=== PATIENT | male | born 1970 | race Caucasian/White ===

== ENCOUNTER 2020-03-29 07:34 | Emergency (ER) | payer OTHER, SELFPAY ==
--- NOTE | 2020-03-29 | ECG_ITS ---
Test Reason : CHEST PAIN Blood Pressure : / mmHG Vent. Rate : 060 BPM Atrial Rate : 060 BPM P-R Int : 164 ms QRS Dur : 114 ms QT Int : 420 ms P-R-T Axes : 010 -12 040 degrees QTc Int : 420 ms Normal sinus rhythm Suble inferior ST elevations with q waves and reciprocal lateral changes. Abnormal ECG No previous ECGs available Referred By: Vamsi Quevedo Electronically Signed By:Jarrod Fuller
--- NOTE | 2020-03-29 07:57 | ED.CHESTPAIN ---
HPI - Chest Pain General Chief Complaint: Chest Pain Stated Complaint: chest pain Time Seen by Provider: 03/29/20 07:57 Source: patient Mode of arrival: ambulatory Limitations: no limitations History of Present Illness HPI narrative: Patient has history of hypertension high cholesterol nonsmoker and alcoholic with no known coronary artery disease woke up from sleep at 02:30 went to bathroom and when he came back noticed mid chest and epigastric area pain nauseated, had diaphoresis too no radiation of pain patient feels heavy in mid chest pain is constant, never had similar pain in the past no history of pancreatitis. Father had OR at age of 45 patient vomited at 06:00 o'clock and just prior to arrival patient said that patient has been having this mid chest pain off and on for last 1 week tried Tums without any relief and last night was the worst pain MD complaint: chest pain Onset (ago): hour(s) Timing of current episode: constant Prior episodes: No Onset: during rest Pain location: substernal and left chest Pain radiation: none Severity: moderate Quality: heaviness Relieving factors: nothing Exacerbating factors: supine Associated symptoms: nausea and vomiting Treatment prior to arrival: none Risk Factors Coronary artery disease risk factors: smoking history, hyperlipidemia, hypertension and family history of CAD before age 50 Related Data Allergies Allergy/AdvReac Type Severity Reaction Status Date / Time No Known Allergies Allergy Verified 03/29/20 08:11 Review of Systems Review of Systems: Constitutional : No Weight loss, No Fever, No Chills ENT/Mouth : No sore throat, No Rhinorrhea Eyes: No Eye Pain, No Swelling Cardiovascular : +Chest Pain, no palpitations Respiratory : No Cough, No Sputum, no shortness of breath Gastrointestinal : no Nausea, No Vomiting, No Diarrhea, No abdominal Pain, no black stools Genitourinary : No Dysuria, No Urinary Frequency Musculoskeletal : No joint pain, No Myalgias, No Joint Swelling Skin : No Skin Lesions, No rash Neuro : No Weakness, No Numbness, No Dizziness, No Headache Psych : No Anxiety/Panic, No Depression Heme/Lymph: No Bruising, No Lymphadenopathy Endocrine : No Polyuria, No Polydipsia All other systems reviewed and are negative PMFSH Past Medical History Medical History High cholesterol Hypertension Social History Social History Alcohol intake: current Alcohol intake frequency: 0-2 drinks per day Alcohol type: beer Smoking Status: Never smoker Physical Exam Vital Signs: Vital Signs: Last Vital Signs Temp 97.6 F 03/29/20 08:07 Pulse 68 03/29/20 10:19 Resp 15 03/29/20 10:19 BP 133/89 03/29/20 10:19 Pulse Ox 100 03/29/20 10:19 Body Mass Index 42.5 Appearance: Alert. Oriented X3. No acute distress. Eyes: Pupils equal, round and reactive to light. ENT: Pharynx normal. Neck: Normal inspection. Neck supple. CVS: Normal heart rate and rhythm. Pulses normal. Respiratory: No respiratory distress. Breath sounds normal. Abdomen: Soft mild epigastric tenderness no rebound tenderness or guarding. Bowel sounds are present, no mass palpable, no CVA tenderness Skin: Skin warm and dry. Normal skin color. Normal skin turgor. Extremities: No lower extremity edema. Neuro: Oriented X 3. No motor deficit. No sensory deficit. Course Course Course Narrative: 09:[address] Fuller psychology instructor agreed for heparin and nitroglycerin drip will come and evaluate the patient Reevaluation(s) Reevaluation #1: Seen with Dr. Fuller spoke to cardiac catheterization lab at [facility] Dr. Wheat accepted the patient for cardiac catheterization patient blood pressure 141/92 pulse rate 62 respiratory rate 15 saturating 100% room air on nitroglycerin drip heparin drip received Lipitor 80 mg and is getting 180 mg of Brilinta feels pain is getting better but still there Time: 10:09 MDM - Chest Pain MDM Narrative Medical decision making narrative: Patient with midsternal chest pain clinically seems like to be cardiac origin initial EKG showed Q-wave in lead 3 and lead AVF without any ST elevation, high sensitive troponin is elevated to 2174 patient is still complaining of mild chest pain repeat EKG did not show any acute changes will start patient on heparin and nitroglycerin drip calling psychology instructor to review and possible transfer to [facility] for cardiac catheterization Differential Diagnosis Differential diagnosis: Likely stable angina, atypical chest pain, chest pain and biliary colic Lab Data Result diagrams: 03/29/20 08:37 03/29/20 08:38 Labs: Lab Results 03/29/20 03/29/20 03/29/20 Range/Units 08:37 08:38 08:38 WBC 9.9 (4.8-10.8) X10*3/uL RBC 4.99 (4.60-5.80) X10*6/uL Hgb 16.3 (14.0-18.0) g/dl Hct 47.8 (42-52) % MCV 95.8 (80-98) fL MCH 32.7 (27.0-33.0) pg MCHC 34.1 (31.0-36.0) g/dl RDW 12.8 (11.0-16.0) % Plt Count 253 (160-400) X10*3/uL MPV 9.7 (9.4-12.4) fL Immature Gran % (Auto) 0.9 H (0.0-0.4) % Neut % (Auto) 79.2 H (45-73) % Lymph % (Auto) 12.1 L (20-40) % [place] % (Auto) 7.4 (2-11) % Eos % (Auto) 0.1 (0-4) % Baso % (Auto) 0.3 (0-2) % Lymph # (Auto) 1.2 (1.2-4.9) X10*3/uL [place] # (Auto) 0.7 (0.1-1.2) X10*3/uL Eos # (Auto) 0.0 (0.0-0.4) X10*3/uL Baso # (Auto) 0.0 (0.0-0.2) X10*3/uL Abs Immat Gran (auto) 0.09 H (0.00-0.03) X10*3/uL Absolute Neuts (auto) 7.8 (2.0-8.3) X10*3/uL Absolute Nucleated RBC 0.000 (0.0-0.012) X10*3/uL Nucleated RBC % (auto) 0.0 (0.0-0.2) /100WBC PT 11.9 (10.8-13.0) SEC INR 1.0 (0.9-1.1) APTT 36.5 (24.1-38.0) SEC D-Dimer < 200 NG/ML Sodium 135 (135-145) mmol/L Potassium 4.3 (3.3-5.1) mmol/l Chloride 100 (96-108) mmol/L Carbon Dioxide 28 (22-29) mmol/L Anion Gap 11 L (12-20) BUN 15 (9-16) mg/dL Creatinine 0.76 (0.5-1.4) mg/dL Estim Creat Clear Calc 168.1 Estimated GFR > 60 Random Glucose 200 H (60-115) mg/dL Calcium 9.0 (8.4-10.2) mg/dL Total Bilirubin 0.5 (0.0-1.0) mg/dL Direct Bilirubin 0.2 (0.0-0.5) mg/dL AST 25 (5-37) U/L ALT 25 (0-40) U/L Alkaline Phosphatase 66 (39-117) U/L Troponin I High Sens (<3.5-35.0) ng/L Total Protein 7.2 (6.5-8.0) g/dL Albumin 4.3 (3.5-5.0) g/dL Lipase 14 (8-78) U/L COVID-19 (CHIDI) COVID-19 Clin Com 03/29/20 03/29/20 Range/Units 08:38 09:30 WBC (4.8-10.8) X10*3/uL RBC (4.60-5.80) X10*6/uL Hgb (14.0-18.0) g/dl Hct (42-52) % MCV (80-98) fL MCH (27.0-33.0) pg MCHC (31.0-36.0) g/dl RDW (11.0-16.0) % Plt Count (160-400) X10*3/uL MPV (9.4-12.4) fL Immature Gran % (Auto) (0.0-0.4) % Neut % (Auto) (45-73) % Lymph % (Auto) (20-40) % [place] % (Auto) (2-11) % Eos % (Auto) (0-4) % Baso % (Auto) (0-2) % Lymph # (Auto) (1.2-4.9) X10*3/uL [place] # (Auto) (0.1-1.2) X10*3/uL Eos # (Auto) (0.0-0.4) X10*3/uL Baso # (Auto) (0.0-0.2) X10*3/uL Abs Immat Gran (auto) (0.00-0.03) X10*3/uL Absolute Neuts (auto) (2.0-8.3) X10*3/uL Absolute Nucleated RBC (0.0-0.012) X10*3/uL Nucleated RBC % (auto) (0.0-0.2) /100WBC PT (10.8-13.0) SEC INR (0.9-1.1) APTT (24.1-38.0) SEC D-Dimer NG/ML Sodium (135-145) mmol/L Potassium (3.3-5.1) mmol/l Chloride (96-108) mmol/L Carbon Dioxide (22-29) mmol/L Anion Gap (12-20) BUN (9-16) mg/dL Creatinine (0.5-1.4) mg/dL Estim Creat Clear Calc Estimated GFR Random Glucose (60-115) mg/dL Calcium (8.4-10.2) mg/dL Total Bilirubin (0.0-1.0) mg/dL Direct Bilirubin (0.0-0.5) mg/dL AST (5-37) U/L ALT (0-40) U/L Alkaline Phosphatase (39-117) U/L Troponin I High Sens 2174.1 H (<3.5-35.0) ng/L Total Protein (6.5-8.0) g/dL Albumin (3.5-5.0) g/dL Lipase (8-78) U/L COVID-19 (CHIDI) Cancelled COVID-19 Clin Com Cancelled ECG Data ECG #1: Attestation: I personally reviewed and interpreted this ECG as follows: Interpretation: Normal sinus rhythm heart rate 60 beats per minute normal intervals normal axis Q-wave in lead 3 and AVF, no acute ST T wave changes impression no acute ischemia Critical Care Time Critical Care Time Critical Care Time: Yes Total Critical Care Time: 45 Attestation: I spent 45 minutes of critical care, with interventions, assessments, speaking to patient, consultants, and family. Discharge Plan Discharge Clinical Impression: Non-ST elevated myocardial infarction (non-STEMI) Patient Disposition: [facility] Additional Instructions: To cardiac catheterization lab [facility] under Dr. Wheat Interventions: Acute Care Transfer Worksheet (ED) Last Done: 03/29/20 10:33 Discharge Date/Time: 03/29/20 10:40
[2020-03-29 08:07] VITALS: BP 154/98; PULSE 65; RESP 16; TEMP 36.4; O2SAT 99; BMI 42.5
--- NOTE | 2020-03-29 08:11 | XR_ITS ---
EXAMINATION: XR CHEST CLINICAL INFORMATION: Chest pain. COMPARISON: None TECHNIQUE: Frontal view of the chest was obtained. FINDINGS: No significant abnormality is noted involving the heart, lungs, mediastinum, bony thorax or soft tissues. XR/XR chest 1V IMPRESSION: Unremarkable chest examination.
[2020-03-29 08:42] LABS: MANUAL DIFF FLAG NO
[2020-03-29 08:43] LABS: Basophils Percent Auto 0.3 % (0-2); Eosinophils Percent Auto 0.1 % (0-4); Hematocrit 47.8 % (42-52); Hemoglobin 16.3 g/dl (14.0-18.0); Imm Gran Abs Auto 0.09 X10*3/uL (0.00-0.03); Imm Gran Pct Auto 0.9 % (0.0-0.4); Lymphocytes Absolute Auto 1.2 X10*3/uL (1.2-4.9); Lymphocytes Percent Auto 12.1 % (20-40); Mean Corpuscular HGB Conc 34.1 g/dl (31.0-36.0); Mean Corpuscular Hemoglobin 32.7 pg (27.0-33.0); Mean Corpuscular Volume 95.8 fL (80-98); Mean Platelet Volume 9.7 fL (9.4-12.4); Monocytes Absolute Auto 0.7 X10*3/uL (0.1-1.2); Monocytes Percent Auto 7.4 % (2-11); Neutrophils Absolute Auto 7.8 X10*3/uL (2.0-8.3); Neutrophils Percent Auto 79.2 % (45-73); Platelet Count 253 X10*3/uL (160-400); Red Blood Count 4.99 X10*6/uL (4.60-5.80); Red Cell Distribution Width 12.8 % (11.0-16.0); White Blood Count 9.9 X10*3/uL (4.8-10.8)
[2020-03-29 08:48] LABS: Prothrombin Time 11.9 SEC (10.8-13.0)
[2020-03-29] MEDS: 0.9 % Sodium Chloride 1,000 ML 999 ML IVCONT (08:48)
[2020-03-29] MEDS: Aspirin 81 MG TAB.CHEW 162 MG PO (08:48)
[2020-03-29] MEDS: Famotidine/PF 20 MG/2 ML VIAL IVPUSH (08:49)
[2020-03-29] MEDS: ondansetron HCL 4 MG/2 ML VIAL IVPUSH (08:49)
[2020-03-29 08:51] LABS: Partial Thromboplastin Time 36.5 SEC (24.1-38.0)
[2020-03-29 08:55] VITALS: PULSE 61
[2020-03-29] MEDS: Magnesium Hydrox/Alum Hydrox 30 ML ORAL.SUSP PO (09:02)
[2020-03-29 09:09] LABS: Alanine Aminotransferase 25 U/L (0-40); Albumin Level 4.3 g/dL (3.5-5.0); Alkaline Phosphatase 66 U/L (39-117); Anion Gap 11 (12-20); Aspartate Amino Transferase 25 U/L (5-37); Bilirubin Direct 0.2 mg/dL (0.0-0.5); Bilirubin Total 0.5 mg/dL (0.0-1.0); Blood Urea Nitrogen 15 mg/dL (9-16); Carbon Dioxide 28 mmol/L (22-29); Chloride 100 mmol/L (96-108); Creatinine Clr Calc Pharmacy 168.1; Estimated Glomerular Filt Rate > 60; Glucose Random 200 mg/dL (60-115); Lipase 14 U/L (8-78); Potassium 4.3 mmol/l (3.3-5.1); Sodium 135 mmol/L (135-145); Total Protein 7.2 g/dL (6.5-8.0)
[2020-03-29 09:22] LABS: Troponin-I High Sensitivity 2174.1 ng/L (<3.5-35.0)
[2020-03-29 09:34] VITALS: BP 141/92; PULSE 62; RESP 15; O2SAT 100
[2020-03-29] MEDS: Heparin Sodium,Porcine 5,000 UNIT/ML VIAL 5000 UNIT IVPUSH (09:36)
[2020-03-29] MEDS: Heparin Sodium,Porcine/1/2NS 25,000 UNIT/250 ML IV.SOLN 10 UNIT IVCONT (09:38)
[2020-03-29 09:42] LABS: D Dimer < 200 NG/ML
[2020-03-29] MEDS: Nitroglycerin/D5W 100 MG/250 ML INFUS..BTL IVCONT (09:47)
--- NOTE | 2020-03-29 09:56 | PC.NURSE ---
turn down attendant at bedside, pt aware of plan of care.
[2020-03-29] MEDS: Atorvastatin Calcium 80 MG TABLET PO (09:57)
--- NOTE | 2020-03-29 09:58 | PC.NURSE ---
nitro drip increased to 30mcg/min per dr. bear who is at pt's bedside vs 150/88-81
[2020-03-29] MEDS: Ticagrelor 90 MG TABLET 180 MG PO (10:16)
[2020-03-29 10:19] VITALS: BP 133/89; PULSE 68; RESP 15; O2SAT 100
--- NOTE | 2020-03-29 10:21 | PC.NURSE ---
nurse to nurse given to lorri (rn[place] [facility] [place] of plan of care for transfer via ambulance. pt's and son in waiting room were also updated by dr. oreilly.
--- NOTE | 2020-03-29 10:23 | PC.NURSE ---
ems is here but they are not certified to transport pt so action was called by the ems for another transport.
--- NOTE | 2020-03-29 10:23 | PM.CNCAR ---
History of Present Illness History of Present Illness Date of Service: 03/29/20 Requesting physician: Vamsi Quevedo Chief complaint: chest pain Narrative: 49-year-old gentleman with HTN and alcohol use presenting with off and on CP ongoing x 1 week and persistent chest pain since 2 am. ECG is showing inferior Q waves with subtle elevations and reciprocal changes. He has been on nitroglycerin gtt with ongoing pain 4-5/10. No previous cardiac issues. No bleeding concerns in the past. He has been loaded with Brilinta in the ER and started on heparin gtt. Review of Systems Review of Systems: CP Yes all other systems are reviewed and are negative PMFSH Past Medical History Medical History High cholesterol Hypertension Social History Social History Alcohol intake: current Alcohol intake frequency: 0-2 drinks per day Alcohol type: beer Smoking Status: Never smoker Use of substances other than those prescribed or required for medical reasons: No Advance Directives: No Advance Directives Information Provided: Yes Meds Allergies Allergy/AdvReac Type Severity Reaction Status Date / Time No Known Allergies Allergy Verified 03/29/20 08:11 Physical Exam Vital Signs: Vital Signs: Last Vital Signs Temp 97.6 F 03/29/20 08:07 Pulse 62 03/29/20 09:34 Resp 15 03/29/20 09:34 BP 141/92 H 03/29/20 09:34 Pulse Ox 100 03/29/20 09:34 Body Mass Index 42.5 GENERAL APPEARANCE: in no acute distress, well developed, well nourished. HEENT: unremarkable. HEAD: normocephalic, atraumatic. NECK/THYROID: no carotid bruit, no jugular venous distention. SKIN: no suspicious lesions, warm and dry. HEART: no murmurs, regular rate and rhythm, S1, S2 normal. LUNGS: clear to auscultation bilaterally. ABDOMEN: normal, bowel sounds present, soft, nontender, nondistended. EXTREMITIES: no clubbing, cyanosis, or edema. PERIPHERAL PULSES: equal. NEUROLOGIC: nonfocal, alert and oriented. PSYCH: mood/affect full range. Results Labs and Meds Result diagrams: 03/29/20 08:37 03/29/20 08:38 Lab results: Laboratory Results - last 24 hr 03/29/20 03/29/20 03/29/20 08:37 08:38 08:38 WBC 9.9 RBC 4.99 Hgb 16.3 Hct 47.8 MCV 95.8 MCH 32.7 MCHC 34.1 RDW 12.8 Plt Count 253 MPV 9.7 Immature Gran % (Auto) 0.9 H Neut % (Auto) 79.2 H Lymph % (Auto) 12.1 L [place] % (Auto) 7.4 Eos % (Auto) 0.1 Baso % (Auto) 0.3 Lymph # (Auto) 1.2 [place] # (Auto) 0.7 Eos # (Auto) 0.0 Baso # (Auto) 0.0 Abs Immat Gran (auto) 0.09 H Absolute Neuts (auto) 7.8 Absolute Nucleated RBC 0.000 Nucleated RBC % (auto) 0.0 PT 11.9 INR 1.0 APTT 36.5 D-Dimer < 200 Sodium 135 Potassium 4.3 Chloride 100 Carbon Dioxide 28 Anion Gap 11 L BUN 15 Creatinine 0.76 Estim Creat Clear Calc 168.1 Estimated GFR > 60 Random Glucose 200 H Calcium 9.0 Total Bilirubin 0.5 Direct Bilirubin 0.2 AST 25 ALT 25 Alkaline Phosphatase 66 Troponin I High Sens Total Protein 7.2 Albumin 4.3 Lipase 14 COVID-19 (CHIDI) COVID-19 Clin Com 03/29/20 03/29/20 08:38 09:30 WBC RBC Hgb Hct MCV MCH MCHC RDW Plt Count MPV Immature Gran % (Auto) Neut % (Auto) Lymph % (Auto) [place] % (Auto) Eos % (Auto) Baso % (Auto) Lymph # (Auto) [place] # (Auto) Eos # (Auto) Baso # (Auto) Abs Immat Gran (auto) Absolute Neuts (auto) Absolute Nucleated RBC Nucleated RBC % (auto) PT INR APTT D-Dimer Sodium Potassium Chloride Carbon Dioxide Anion Gap BUN Creatinine Estim Creat Clear Calc Estimated GFR Random Glucose Calcium Total Bilirubin Direct Bilirubin AST ALT Alkaline Phosphatase Troponin I High Sens 2174.1 H Total Protein Albumin Lipase COVID-19 (CHIDI) Cancelled COVID-19 Clin Com Cancelled Imaging Radiologist's impression: Impressions Chest X-Ray 03/29/20 08:11 IMPRESSION: Unremarkable chest examination. Assessment and Plan (1) Non-ST elevated myocardial infarction (non-STEMI): Status: Acute Pleasant 49-year-old gentleman here for ongoing chest discomfort since 2 AM. He has been having structure chest pain for the last week. ECG showing inferior Q-waves with subtle ST elevation with reciprocal changes. His troponin is 2000. He has ongoing chest discomfort at this stage despite nitroglycerin. I think he needs to cardiac catheterization lab now. He is being loaded with Brilinta 180 mg and is already on heparin drip. We will transfer him straight to cardiac catheterization lab. I had a discussion with Dr. Javy Wheat at [facility] who will take him for cardiac catheterization. Further recommendation based on results of cardiac catheterization. Thank you for allowing me to participate in the care of your patient. Please feel free to contact me if you have any questions.
--- NOTE | 2020-03-29 10:24 | PC.NURSE ---
10:08AM [facility] CALLED FOR STAT CALL FOR ALS TRANSPORT TO [facility] COMPLEX CASE MANAGER DR OXANA HORTA ACCEPTING @ [facility]
--- NOTE | 2020-03-29 10:28 | PC.NURSE ---
nurse to nurse given to ems
[2020-03-29 10:53] LABS: COVID-19 Test Negative (Negative)
--- NOTE | 2020-03-30 | ECG_ITS ---
Test Reason : CHEST PAIN Blood Pressure : / mmHG Vent. Rate : 065 BPM Atrial Rate : 065 BPM P-R Int : 156 ms QRS Dur : 108 ms QT Int : 430 ms P-R-T Axes : 024 -05 050 degrees QTc Int : 447 ms Sinus rhythm with Fusion complexes Inferior infarct (cited on or before 29-MAR-2020) Abnormal ECG When compared with ECG of 29-MAR-2020 07:41, Fusion complexes are now Present Referred By: Vamsi Quevedo Electronically Signed By:Jarrod Fuller
== END 2020-03-29 10:40 | disposition short-term general hospital (02) ==
PROVIDERS: Emergency Provider Internal Medicine; PCP Internal Medicine
DX: I21.4 Non-ST elevation (NSTEMI) myocardial infarction (principal); Z20.822 Contact with and (suspected) exposure to COVID-19; I10 Essential (primary) hypertension; E78.5 Hyperlipidemia, unspecified
CPT/HCPCS: 36415; 71045; 80048; 80076; 83690; 84484; 85025; 85379; 85610; 85730; 87635; 93005; 96361; 96365; 96375; 99285; 99291; J2405

== ENCOUNTER → 2020-04-12 13:09 | Outpatient (BNVA) | payer OTHER, SELFPAY | PROVIDERS: PCP Internal Medicine; Visit Provider Internal Medicine Cardiovascular Disease ==

== ENCOUNTER → 2020-05-03 09:18 | Outpatient (BNVA) | payer OTHER, SELFPAY | PROVIDERS: PCP Internal Medicine; Visit Provider Internal Medicine Cardiovascular Disease | DX: I48.0 Paroxysmal atrial fibrillation (principal); I21.4 Non-ST elevation (NSTEMI) myocardial infarction; I25.5 Ischemic cardiomyopathy | CPT/HCPCS: 93005 ==

== ENCOUNTER → 2020-06-14 09:37 | Outpatient (BNVA) | payer OTHER, SELFPAY | PROVIDERS: PCP Internal Medicine; Visit Provider Internal Medicine Cardiovascular Disease ==

== ENCOUNTER → 2020-07-29 07:22 | Outpatient (REF) | payer OTHER, SELFPAY ==
--- NOTE | 2020-07-29 07:25 | CA_ITS ---
Transthoracic Echocardiogram Patient (Last, First, Middle): Sagar Sierra, Gender: Male Date of : 1970 Age: 50 Procedure Date: 07/29/2020 Procedure Type: Transthoracic Echocardiogram Location: OP Height: 185.42 cm Weight: 124.74 kg BSA: 2.46 m2 Heart Rate: bpm BP: 128 / 82 mmHg Auto Garage Mechanic: Gary MD: Jarrod Fuller MD Symptoms: I25.5 - Ischemic cardiomyopathy Study Quality: Good ECG Rhythm: Sinus Conclusions: - Due to poor endocardial definition, wall motion assessment suboptimal. Basal inferior wall appears hypokinetic. Overall LVEF > 50%. Findings Left Ventricle Normal left ventricular cavity size. Due to poor endocardial definition, wall motion assessment suboptimal. Basal inferior wall appears hypokinetic. Overall LVEF > 50%. Prior Study Comparison No prior study available for comparison. Measurements 2D Linear Measurements RVIDd: 3.84 RVIDd Index: 1.56 IVSd: 0.91 0.6-0.9/0.6-1.0 cm LVIDd: 6.09 3.9-5.3/4.2-5.9 cm LVIDd Index: 2.48 2.4-3.2/2.2-3.1 cm/m2 LVIDs: 3.60 2.0-3.6 cm LVPWd: 1.02 0.7-1.1 cm LV Mass: 300.78 67-162/88-224 g LV Mass Index: 122.27 43-95/49-115 g/m2 2D Systolic Function EF 4C: 51.80 >55% EF 2C: 45.60 >55% EF BiP: 49.80 >55% Mitral Valve MV Pk E: 0.74 MV PK A: 0.74 MV Decel Time: 240.00 E/A: 1.00 E'Lateral: 8.49 E'Medial: 8.05 E/E' Med: 9.20 E/E' Lat: 8.70 Diastolic Function MV Pk E: 0.74 MV Pk A: 0.74 E/A: 1.00 E'Medial: 8.05 E/E' Med: 9.20 E' Laterial: 8.49 E/E' Lat: 8.70 Updated in Other Vendor System with Status of Final Tristan Lewis MD electronically signed on 07/30/2020 3:41:53 PM with status of Final
== END ==
LOC: HO.CARD 07:22
PROVIDERS: Visit Provider Internal Medicine Cardiovascular Disease
DX: I25.5 Ischemic cardiomyopathy (principal)
CPT/HCPCS: 93308

== ENCOUNTER → 2020-08-05 14:17 | Outpatient (BNVA) | payer OTHER, SELFPAY | PROVIDERS: PCP Internal Medicine; Visit Provider Internal Medicine Cardiovascular Disease ==

== ENCOUNTER → 2021-02-21 14:41 | Outpatient (BNVA) | payer OTHER, SELFPAY | PROVIDERS: Visit Provider Internal Medicine Cardiovascular Disease | DX: I48.0 Paroxysmal atrial fibrillation (principal); M79.606 Pain in leg, unspecified; I20.8 Other forms of angina pectoris | CPT/HCPCS: 93005 ==

== ENCOUNTER 2021-03-11 08:48 | Outpatient (REF) | payer OTHER, SELFPAY ==
--- NOTE | ~2021-03-11 | US_ITS ---
EXAMINATION: Noninvasive assessment of the arteries of both lower extremities to include a PVR exam limited (1-2 levels) and SOPHIA, bilateral. ? Brian aMynard M.D. CLINICAL INFORMATION: Pain in leg COMPARISON: None TECHNIQUE: The ankle/brachial indices of the distal posterior tibial and the dorsalis pedis arteries were obtained of the lower extremity arterial system bilaterally; along with pressures and pulse volume recordings at the ankle. ? FINDINGS AT REST:? RIGHT LE. THE RIGHT ANKLE-BRACHIAL INDEX IS: 1.18 (higher of the DP/PT) >0.97-1.25 = normal - no significant arterial disease 0.75-0.96 = mild peripheral arterial disease 0.50-0.74 = moderate peripheral arterial disease <0.50 = severe peripheral arterial disease <0.30 = critical arterial disease 2. SEGMENTAL PRESSURES: Ankle: PT 125 DP 148 3. PVR WAVEFORMS: Ankle: Normal LEFT LE. THE LEFT ANKLE-BRACHIAL INDEX IS: 1.16 (higher of the DP/PT) >0.97-1.25 = normal - no significant arterial disease 0.75-0.96 = mild peripheral arterial disease 0.50-0.74 = moderate peripheral arterial disease <0.50 = severe peripheral arterial disease <0.30 = critical arterial disease 2. SEGMENTAL PRESSURES: Ankle: PT 145 DP 141 3. PVR WAVEFORMS: Ankle: Normal ? US/US SOPHIA complete IMPRESSION: Normal PVR waveforms and ABIs.
== END 2021-03-11 08:49 | disposition home or self-care (01) ==
LOC: HO.US 08:48
PROVIDERS: PCP Internal Medicine; Visit Provider Internal Medicine Cardiovascular Disease
DX: M79.606 Pain in leg, unspecified (principal)
CPT/HCPCS: 93923

== ENCOUNTER → 2021-06-15 13:09 | Outpatient (BNVA) | payer OTHER, SELFPAY | PROVIDERS: PCP Internal Medicine; Visit Provider Internal Medicine Cardiovascular Disease | DX: Z13.89 Encounter for screening for other disorder (principal) ==

== ENCOUNTER → 2021-12-28 15:33 | Outpatient (BNVA) | payer OTHER, SELFPAY | PROVIDERS: PCP Internal Medicine; Visit Provider Internal Medicine Cardiovascular Disease | DX: I20.8 Other forms of angina pectoris (principal); I48.0 Paroxysmal atrial fibrillation | CPT/HCPCS: 93005 ==

== ENCOUNTER → 2022-02-15 08:26 | Outpatient (REF) | payer OTHER, SELFPAY ==
--- NOTE | 2022-02-15 08:30 | HM_ITS ---
* Total monitoring time 4 days. * Underlying rhythm is sinus. Average ventricular rate 79/Min. Range 47 to 109/Min. * Occasional supraventricular ectopy with a burden of 1.7%. * Rare ventricular ectopy with a burden of 0.4%. * No significant pauses or AV blocks. * No diary submitted. MTDD
--- NOTE | 2022-02-15 08:30 | CA_ITS ---
Acquisition Time: 2022-02-15 10:26:26 Total Exercise Time: 00:06:51 Test Indications: Syncope, Shortness of breath Medications: Protocol: CRISTÓBAL Max HR: 134 BPM 80% of Pred: 167 BPM Max BP: 168/086 mmHG Max Work Load: 8.2 METS Exercise stress test with exercise 6 min 51 sec of Cristóbal protocol, achieving 75% MPHR, 8.2 METs, with mild sob and left foot pain with need to stop exercise, No chest discomfort or lightheadedness, with isolated PVCs, ventricular cuplets and ventricular bigeminy through much of stage 2 and 3, with normotensive response to exercise, without EKG changes meeting criteria for ischemia due to suboptimal heart rate. In recovery PVCs lessened and were just occassioinal. Test reviewed with Dr Lewis Referred By: Jarrod Fuller Overread By: MIGUEL RAMIREZ
--- NOTE | 2022-02-15 08:30 | CA_ITS ---
Transthoracic Echocardiogram Patient (Last, First, Middle): Sagar Sierra, Gender: Male Date of : 1970 Age: 51 Procedure Date: 02/15/2022 Procedure Type: Transthoracic Echocardiogram Location: OP Height: 185.42 cm Weight: 124.74 kg BSA: 2.46 m2 Heart Rate: 66 bpm BP: 118 / 76 mmHg Gm: SB Referring MD: Jarrod Fuller MD Symptoms: R55 - Syncope and collapse Study Quality: Adequate w contrast ECG Rhythm: Sinus Conclusions: - The left ventricular systolic function is low normal. The calculated ejection fraction is 53% by biplane method. Findings Procedure Information Contrast agent, definity, is being given per protocol without apparent complications. Left Ventricle Normal left ventricular cavity size. The left ventricular systolic function is low normal. The calculated ejection fraction is 53% by biplane method. There is no evidence of regional wall motion abnormalities. Prior Study Comparison No significant change compared to prior study dated: 07/29/2020. Wall motion abnormality not clearly appreciated. Measurements 2D Systolic Function EF 4C: 58.50 >55% EF 2C: 46.60 >55% EF BiP: 53.30 >55% Updated in Other Vendor System with Status of Final Tristan Lewis MD electronically signed on 02/18/2022 2:19:28 PM with status of Final
== END ==
LOC: HO.CARD 08:26
PROVIDERS: Visit Provider Internal Medicine Cardiovascular Disease
DX: R06.00 Dyspnea, unspecified (principal); R55 Syncope and collapse
CPT/HCPCS: 93017; 93242; 93308; Q9957

== ENCOUNTER → 2022-06-14 15:38 | Outpatient (BNVA) | payer OTHER, SELFPAY | PROVIDERS: PCP Internal Medicine; Referring Provider Internal Medicine; Visit Provider Internal Medicine Cardiovascular Disease | DX: R55 Syncope and collapse (principal) | CPT/HCPCS: 93005 ==

== ENCOUNTER 2022-11-27 10:45 | Outpatient (AMB) | payer OTHER, SELFPAY ==
[2022-11-27 10:48] VITALS: BP 120/72; PULSE 60; BMI 39.5
--- NOTE | 2022-11-27 10:48 | A.OFFVIS_ITS ---
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 Allergies No Known Allergies Allergy (Verified 06/14/22 15:45) Medication List - Last Reconciled 11/27/22 by Jarrod Fuller MD amlodipine 5 mg PO DAILY 90 days apixaban (Eliquis) 5 mg PO BID atorvastatin 80 mg PO DAILY blood pressure monitor As directed carvedilol 12.5 mg PO BID 90 days clopidogrel 75 mg PO DAILY lisinopril 5 mg PO DAILY 90 days HPI HPI Comments History of Present Illness Details 51-year-old gentleman with background hi story of coronary artery disease with previous PCI to right coronary artery with initial ejection fraction of 35-40% which improved to more than 50% on follow-up. He also had episode of atrial fibrillation and was started on Eliquis. He has been on Eliquis and Plavix and has been doing well. He had bilateral leg cramping at nighttime and underwent ankle-brachial index assessment which was normal. He was seen for left foot surgery and was advised to proceed wake intermediate risk for perioperative complications. He is now presenting because he had syncope any surgery was canceled. He is saying he woke up at night to go to bathroom for passing urine. He does this every night 1-2 times. He said he came back to his bed turned around and then felt dizzy and passed out. He is describing vertigo like feeling that the room was spinning. He is unclear how long he passed out for but when he woke up he was still feeling a spinning sensation is his head and after few minutes the sensation went away any went back to bed and slept. He has not had any further episodes since then. He is saying he has some shortness of breath with activity and some atypical left-sided chest discomfort also. He has never fainted before. He did not feel heart or flushed before this happened. He was waiting to undergo ankle surgery and it appears it surgery was canceled. After discussion he was referred for testing including echocardiography which showed low normal ejection fraction as before, Holter monitor which did not show any significant arrhythmia, exercise stress test where he exercised for 8.2 metabolic equivalents and stop due to left foot pain. He did have some ventricular couplets and bigeminy which improved as he stopped exercising. No ischemic EKG changes were noticed. He is back for follow-up today. He has been doing well. He is waiting to undergo surgery this month. Taking medications regularly. 11/27/22: He returns for f/u. He had stinson tid US done which showed carotid disease and it appears he has seen vascular with [facility] and underwent CTA which showed 40% carotid disease as per the patient's report. He has no CP or SOB. Taking meds regularly. [facility] Medical History (Updated 02/02/22 @ 15:30 by Jarrod Fuller MD) High cholesterol Hypertension Surgical History Amputation toe History of cardiac cath Family History Mother Diabetes Father Heart disease Sister Diabetes Brother Lyme disease Social History Alcohol intake: current Alcohol intake frequency: 0-2 drinks per day Alcohol type: beer Patient Tobacco Use Status: Never used Tobacco Review of Systems Const Denies chills, Denies fatigue, Denies fever(s), Denies frequent falls, Denies weakness, Denies weight gain and Denies weight loss ENT Denies dizziness Card Denies chest pain, Denies leg edema, Denies lightheadedness, Denies palpitations, Denies dyspnea, Denies dyspnea on exertion, Denies orthopnea and Denies other (loss of consciousness) Resp Denies cough, Denies dyspnea and Denies dyspnea on exertion GI Denies hematochezia and Denies change in stool character Musc Denies abnormal gait, Denies muscle weakness, Denies numbness, Denies radiating pain into limb and Denies tingling Neuro Denies abnormal gait, Denies dizziness, Denies frequent falls, Denies numbness, Denies tingling and Denies weakness Endo Denies fatigue and Denies palpitations Physical Exam Vital Signs: Last Vital Signs Pulse 60 11/27/22 10:48 BP 120/72 11/27/22 10:48 BMI result Body Mass Index 39.5 GENERAL APPEARANCE: in no acute distress, pleasant. NECK: no carotid bruit, no jugular venous distention. SKIN: no suspicious lesions, warm and dry. HEART: no murmurs, regular rate and rhythm. LUNGS: clear to auscultation bilaterally. ABDOMEN: soft, nontender. EXTREMITIES: no edema. PERIPHERAL PULSES: equal. NEUROLOGIC: No gross deficits, AAO X 3 Assessment & Plan Assessment & Plan (1) Stable angina: Code(s): I20.8 - Other forms of angina pectoris (2) PAF (paroxysmal atrial fibrillation): Comment: He is currently asymptomatic. Code(s): I48.0 - Paroxysmal atrial fibrillation (3) Ischemic cardiomyopathy: Code(s): I25.5 - Ischemic cardiomyopathy Plan 52-year-old gentleman here for f/u. He has stable angina. continue same meds. He has carotid disease. We will get records. Fasting lipid panel. f/u in few months. Orders: Orders Lipid Panel Today I20.8 - Other forms of angina pectoris Coding Level of Care Code Est Pt Level 4 (36864) Diagnoses Stable angina I20.8 PAF (paroxysmal atrial fibrillation) I48.0 Ischemic cardiomyopathy I25.5
== END 2022-11-27 11:10 | disposition home or self-care (01) ==
PROVIDERS: PCP Internal Medicine; Visit Provider Internal Medicine Cardiovascular Disease
DX: I20.8 Other forms of angina pectoris (principal); I48.0 Paroxysmal atrial fibrillation; I25.5 Ischemic cardiomyopathy
CPT/HCPCS: 99214

== ENCOUNTER → 2022-11-27 10:45 | Outpatient (BNVA) | payer OTHER, SELFPAY | PROVIDERS: PCP Internal Medicine; Visit Provider Internal Medicine Cardiovascular Disease ==

== ENCOUNTER 2022-12-01 09:47 | Outpatient (REF) | payer OTHER, SELFPAY ==
[2022-12-01 10:50] LABS: Cholesterol 124 mg/dL (<200); HDL Cholesterol 38 mg/dL (>40); LDL Cholesterol Calculated 65 mg/dL (<100); Triglycerides 106 mg/dL (<150)
== END 2022-12-01 09:48 | disposition home or self-care (01) ==
LOC: HO.LAB 09:47
PROVIDERS: PCP Internal Medicine; Visit Provider Internal Medicine Cardiovascular Disease
DX: I20.8 Other forms of angina pectoris (principal)
CPT/HCPCS: 36415; 80061

== ENCOUNTER 2023-03-12 11:30 | Outpatient (AMB) | payer OTHER, SELFPAY ==
[2023-03-12 11:44] VITALS: BP 120/70; PULSE 67; BMI 41.3
--- NOTE | 2023-03-12 11:44 | MHC.OFFVIS ---
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 Accompanied by: Spouse Allergies No Known Allergies Allergy (Verified 06/14/22 15:45) Medication List - Last Reconciled 03/12/23 by Jarrod Fuller MD amlodipine 5 mg PO DAILY 90 days apixaban (Eliquis) 5 mg PO BID atorvastatin 80 mg PO DAILY blood pressure monitor As directed carvedilol 12.5 mg PO BID 90 days clopidogrel 75 mg PO DAILY ergocalciferol (vitamin D2) 1,250 mcg PO QWEEK lisinopril 5 mg PO DAILY 90 days HPI HPI Comments History of Present Illness Details 52-year-old gentleman with background history of coronary artery disease with previous PCI to right coronary artery with initial ejection fraction of 35-40% which improved to more than 50% on follow-up. He also had episode of atrial fibrillation and was started on Eliquis. He has been on Eliquis and Plavix and has been doing well. He had bilateral leg cramping at nighttime and underwent ankle-brachial index assessment which was normal. He was seen for left foot surgery and was advised to proceed wake intermediate risk for perioperative complications. He is now presenting because he had syncope any surgery was canceled. He is saying he woke up at night to go to bathroom for passing urine. He does this every night 1-2 times. He said he came back to his bed turned around and then felt dizzy and passed out. He is describing vertigo like feeling that the room was spinning. He is unclear how long he passed out for but when he woke up he was still feeling a spinning sensation is his head and after few minutes the sensation went away any went back to bed and slept. He has not had any further episodes since then. He is saying he has some shortness of breath with activity and some atypical left-sided chest discomfort also. He has never fainted before. He did not feel heart or flushed before this happened. He was waiting to undergo ankle surgery and it appears it surgery was canceled. After discussion he was referred for testing including echocardiography which showed low normal ejection fraction as before, Holter monitor which did not show any significant arrhythmia, exercise stress test where he exercised for 8.2 metabolic equivalents and stop due to left foot pain. He did have some ventricular couplets and bigeminy which improved as he stopped exercising. No ischemic EKG changes were noticed. He is back for follow-up today. He has been doing well. He is waiting to undergo surgery this month. Taking medications regularly. 11/27/22: He returns for f/u. He had carotid US done which showed carotid disease and it appears he has seen vascular with [facility] and underwent CTA which showed 40% carotid disease as per the patient's report. He has no CP or SOB. Taking meds regularly. 03/12/2023: He returns for follow-up. He is denying any chest discomfort shortness of breath. He underwent ankle surgery but he is still recovering from that. Over the holidays he has gained more weight. He is experiencing burning chest discomfort which is due to acid reflux. He has significant burping. He is due to get a barium swallow. He has taking an [id number] antacid at this point. [facility] Medical History (Updated 02/02/22 @ 15:30 by Jarrod Fuller MD) High cholesterol Hypertension Surgical History Amputation toe History of cardiac cath Family History Mother Diabetes Father Heart disease Sister Diabetes Brother Lyme disease Social History Alcohol intake: current Alcohol intake frequency: 0-2 drinks per day Alcohol type: beer Patient Tobacco Use Status: Never used Tobacco Review of Systems Const Reports chills, Reports fatigue, Reports fever(s), Reports frequent falls, Reports weakness, Reports weight gain and Reports weight loss ENT Reports dizziness Card Reports chest pain, Reports leg edema, Reports lightheadedness, Reports palpitations, Reports dyspnea and Reports dyspnea on exertion Resp Reports cough, Reports dyspnea and Reports dyspnea on exertion GI Reports hematochezia Musc Reports abnormal gait, Reports muscle weakness, Reports numbness, Reports radiating pain into limb and Reports tingling Neuro Reports abnormal gait, Reports dizziness, Reports frequent falls, Reports numbness, Reports tingling and Reports weakness Endo Reports fatigue and Reports palpitations Physical Exam Vital Signs: Last Vital Signs Pulse 67 03/12/23 11:44 BP 120/70 03/12/23 11:44 BMI result Body Mass Index 41.3 GENERAL APPEARANCE: in no acute distress, pleasant. NECK: no carotid bruit, no jugular venous distention. SKIN: no suspicious lesions, warm and dry. HEART: no murmurs, regular rate and rhythm. LUNGS: clear to auscultation bilaterally. ABDOMEN: soft, nontender. EXTREMITIES: no edema. PERIPHERAL PULSES: equal. NEUROLOGIC: No gross deficits, AAO X 3 Assessment & Plan Assessment & Plan (1) Ischemic cardiomyopathy: Code(s): I25.5 - Ischemic cardiomyopathy (2) PAF (paroxysmal atrial fibrillation): Comment: He is currently asymptomatic. Code(s): I48.0 - Paroxysmal atrial fibrillation (3) Stable angina: Code(s): I20.8 - Other forms of angina pectoris Plan 52-year-old gentleman here for follow-up. He has history of coronary disease with previous acute coronary syndrome where he had PCI done to right coronary artery. He developed atrial fibrillation afterwards and has been on apixaban since then. He is in sinus rhythm. Blood pressure control is good. His main issues are related to his left ankle which she underwent surgery for and is still recovering from. He is complaining of acid reflux and will be getting further workup including barium swallow. He is using [id number] antacids. I have advised him that he should not go to bed soon after eating and they should be at least 2-3 hours gap between his dinner and bedtime. He is sleeping inclined. Thank you for allowing me to participate in the care of your patient. Please feel free to contact me if you have any questions. Coding Level of Care Code Est Pt Level 4 (21837) Diagnoses Ischemic cardiomyopathy I25.5 PAF (paroxysmal atrial fibrillation) I48.0 Stable angina I20.8
== END 2023-03-12 12:15 | disposition home or self-care (01) ==
PROVIDERS: PCP Internal Medicine; Visit Provider Internal Medicine Cardiovascular Disease
DX: I25.5 Ischemic cardiomyopathy (principal); I48.0 Paroxysmal atrial fibrillation; I20.8 Other forms of angina pectoris
CPT/HCPCS: 99214

== ENCOUNTER → 2023-03-12 11:30 | Outpatient (BNVA) | payer OTHER, SELFPAY | PROVIDERS: PCP Internal Medicine; Visit Provider Internal Medicine Cardiovascular Disease ==

== ENCOUNTER 2023-03-29 07:51 | Outpatient (REF) | payer OTHER, SELFPAY ==
--- NOTE | ~2023-03-29 | FL_ITS ---
EXAMINATION: XR FLUOROSCOPY UPPER GI WITH AIR CLINICAL INFORMATION: Dysphagia. Reflux. COMPARISON: None TECHNIQUE: Fluoroscopic air contrast upper GI examination was performed utilizing standard techniques with thin and thick barium and effervescent granules. Numerous spot images were obtained. FINDINGS: Lateral cine images of the oropharynx and hypopharynx demonstrate normal swallow mechanism with normal epiglottic inversion and soft palate elevation. Trace laryngeal penetration was seen with thick barium. No tracheal penetration, glottic or subglottic aspiration identified. No nasopharyngeal reflux present. Hypopharyngeal structures appear normal without evidence of mass or diverticulum. There was no significant cricopharyngeal achalasia. Dual and single contrast images of the esophagus demonstrate normal caliber, contour, and mucosal pattern. No evidence of stricture, mass, or ulcerations identified. Nonpropulsive tertiary contractions are noted throughout the esophagus No evidence of hiatus hernia identified. Mild gastroesophageal reflux is seen in the lower esophagus. Dual contrast and single contrast images of the stomach demonstrated a normal contour. There a few small areas of contrast pooling in the fundus and body the stomach that may represent superficial mucosal ulcers. There is no evidence of any masses. Contrast freely passed into the gastric antrum and duodenal bulb without delay. Single and air-contrast images of the duodenal bulb demonstrate no abnormality. The duodenal sweep has a normal appearance, course, and mucosal fold appearance. No malrotation. The imaged proximal jejunum demonstrate somewhat generous appearing fold pattern, raising possibility of proximal enteritis or malabsorption syndrome. Incidentally noted are large anterior osteophytes projecting from C4 through C6, with only mild disc space narrowing, findings suggestive of DISH. There is a reversal of the normal cervical lordosis. There is a 3 mm anterolisthesis of C2 on C3. FLUOROSCOPY TIME: 3 minutes 48 seconds Number of Spot Images: 8 Number of Cine: 11 DOSE AREA PRODUCT: [id number] uGy-m2 (microgray-meter squared) FL/FL barium swallow IMPRESSION: 1. Trace laryngeal penetration with thick barium 2. Nonpropulsive tertiary contractions noted throughout the esophagus, consistent with esophageal dysmotility 3. Mild gastroesophageal reflux 4. A few small areas of contrast pooling in the fundus and body the stomach that may represent superficial mucosal erosions. Recommend correlation with EGD. 5.The imaged proximal jejunum demonstrate somewhat thickened appearing fold pattern, raising possibility of proximal enteritis or malabsorption syndrome. This could also be technical in nature. 6. Findings at C4-C6 suggestive of DISH. This procedure was performed by Sunday Do PA-C, and supervised by Dr. Chen
== END 2023-03-29 07:52 | disposition home or self-care (01) ==
LOC: HO.XRAY 07:51
PROVIDERS: PCP Internal Medicine; Visit Provider Otolaryngology
DX: R13.10 Dysphagia, unspecified (principal); K21.9 Gastro-esophageal reflux disease without esophagitis
CPT/HCPCS: 74220

== ENCOUNTER → 2023-03-29 07:54 | Outpatient (BNV) | payer OTHER, SELFPAY | PROVIDERS: PCP Internal Medicine; Visit Provider Radiology Diagnostic Radiology | DX: R13.10 Dysphagia, unspecified (principal); K21.9 Gastro-esophageal reflux disease without esophagitis | CPT/HCPCS: 74221 ==

== ENCOUNTER 2023-07-26 08:51 | Outpatient (AMB) | payer OTHER, SELFPAY ==
[2023-07-26 09:04] VITALS: BP 124/70; PULSE 68; BMI 40.7
--- NOTE | 2023-07-26 09:04 | MHC.OFFVIS ---
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 Allergies No Known Allergies Allergy (Verified 07/26/23 09:06) Medication List - Last Reconciled 07/26/23 by Symone Das NP-C amlodipine 5 mg PO DAILY 90 days apixaban (Eliquis) 5 mg PO BID atorvastatin 80 mg PO DAILY blood pressure monitor As directed carvedilol 12.5 mg PO BID clopidogrel 75 mg PO DAILY lisinopril 5 mg PO DAILY 90 days pantoprazole 40 mg PO DAILY HPI HPI 4 mth fu: Details: Sagar is a 53-year-old male with past medical history of hyperlipidemia, CAD, NSTEMI with PCI to the RCA, ischemic cardiomyopathy last EF 50%, paroxysmal atrial fibrillation, syncope who presents for follow-up. Today he reports he has been doing well since his last visit in March. He has not had any chest discomfort at rest or with activity. He has mild shortness of breath with exertion. No shortness of breath at rest, PND, orthopnea or edema. No lightheadedness, presyncope, syncope, falls. No bleeding issues reported. He has been having chronic issues with his left ankle. He has met with his orthopedic provider and he may be undergoing revision of the hardware in his left ankle in a few months. He has not fully decided yet if he wants to proceed. Taking all meds as directed. [facility] Medical History (Updated 07/26/23 @ 10:24 by CYNTHIA Lynn) High cholesterol Hypertension Surgical History (Updated 07/26/23 @ 10:59 by Symone Das NP-Faiza) Amputation toe History of cardiac cath Family History Mother Diabetes Father Heart disease Sister Diabetes Brother Lyme disease Social History Alcohol intake: current Alcohol intake frequency: 0-2 drinks per day Alcohol type: beer Patient Tobacco Use Status: Never used Tobacco Review of Systems Const All systems reviewed & are unremarkable except as noted in HPI and below ENT Denies dizziness Card Denies chest pain, Denies chest pain at rest, Denies chest pain with activity, Denies rapid heart rate, Denies pedal edema, Denies edema, Denies leg edema, Denies lightheadedness, Denies palpitations, Denies dyspnea, Denies dyspnea on exertion and Denies orthopnea Resp Denies cough, Denies dyspnea and Denies dyspnea on exertion GI Denies hematochezia and Denies change in stool character Musc Details: issues with left ankle Reports abnormal gait, Reports limited range of motion, Denies muscle cramps, Denies muscle weakness, Denies numbness, Denies radiating pain into limb, Denies stiffness and Denies tingling Neuro Reports abnormal gait, Denies dizziness, Denies numbness and Denies tingling Endo Denies palpitations Physical Exam Vital Signs: Last Vital Signs Pulse 68 07/26/23 09:04 BP 124/70 07/26/23 09:04 BMI result Body Mass Index 40.7 Const General: cooperative, healthy appearing, comfortable and no acute distress Orientation/consciousness: patient oriented x3 Eyes Sclerae: sclerae normal Neck Neck: Yes normal visual inspection Resp Effort & Inspection: normal respiratory effort Auscultation: clear to auscultation bilaterally, no crackles, no rales, no rhonchi and no wheezes Cardio Jugular venous distension: no JVD Rate: regular rate Rhythm: regular rhythm Heart sounds: S1 normal heart sound present, S2 normal heart sound present, no murmurs and no rubs Neuro General: patient oriented x3 Extrem General: Yes normal to inspection and No no pedal edema Psych Appearance: grossly normal Mental Status: mental status grossly normal Speech and movement: Normal speech and movement present Office Procedures EKG Details: Today, read by me, sinus rhythm with PAC, rate 68, QTC 412 milliseconds [id number], Complete Assessment & Plan Assessment & Plan (1) CAD (coronary artery disease): Code(s): I25.10 - Atherosclerotic heart disease of [place] coronary artery without angina pectoris Category: Medical Plan: History of CAD, NSTEMI, 03/2020 with cardiac catheterization and BITA to the RCA. Initially his echocardiogram showed EF 35-45%, inferior lateral wall akinetic, mid inferior wall hypokinetic. Since that time his EF has improved. Last echo done 02/15/2022 showed EF 53%, no evidence of regional wall motion abnormality. He did undergo a stress test on 02/15/2022 for report of shortness of breath and syncope. He was able to exercise nearly 7 minutes with no anginal symptoms, isolated PVCs, couplets and ventricular bigeminy, without EKG changes meeting criteria for ischemia. He has not had any issues with chest discomfort since the time of his NSTEMI. EKG done today showing normal sinus rhythm with 1 Pac, rate 68, QTC 412 milliseconds. He has been on Plavix as well as Eliquis. Will check with his primary research and development scientist about discontinuing Plavix. He is on high-dose atorvastatin with ideal LDL goal less than 70. Labs done 12/01/2022 showed LDL 65. Is on amlodipine, lisinopril and carvedilol. Blood pressure is well controlled at 124/70. Signs and symptoms of angina reviewed with him. No med changes made at this time. Cardiology follow-up in 6 months, sooner if needed (2) Stented coronary artery: Comment: BITA to the RCA 03/2020 Code(s): Z95.5 - Presence of coronary angioplasty implant and graft Category: Surgical Plan: BITA to the RCA 03/2020 (3) History of cardiac cath: Comment: 03/2020, BITA to the RCA Code(s): Z98.890 - Other specified postprocedural states Category: Surgical Plan: As above (4) PAF (paroxysmal atrial fibrillation): Comment: He is currently asymptomatic. Code(s): I48.0 - Paroxysmal atrial fibrillation Category: Medical Plan: History of paroxysmal atrial fibrillation. Currently suppressed. On carvedilol for rate control. He is not noticing any heart palpitations. EKG done today showing sinus rhythm, 1 Pac, rate 68. Is on Eliquis for anticoagulation. No bleeding issues reported. Labs are followed by his PCP. He should have CBC, BMP twice yearly. Will forward this note to his PCP. (5) Preop cardiovascular exam: Code(s): Z01.810 - Encounter for preprocedural cardiovascular examination Category: Medical Plan: Patient tells me he may be undergoing orthopedic surgery on his left ankle to replace hardware. He is not sure if he is going to proceed or not at this time. He has had an echocardiogram and nuclear stress test within the last 2 years. He has no anginal sounding symptoms. His EKG today shows AFib is suppressed. If he undergo surgery prior to his next visit and his condition remains clinically unchanged, he may proceed with orthopedic surgery with an intermediate cardiac risk. Eliquis can be held 48 hours prior to his procedure and restarted as soon as cleared by surgeon to do so. (6) Ischemic cardiomyopathy: Code(s): I25.5 - Ischemic cardiomyopathy Category: Medical Plan: As above. Last EF 53%. He is on lisinopril and carvedilol for neurohormonal modulation. Plan Time spent on chart review, documentation, interview and assessment Coding Level of Care Code Est Pt Level 4 (17991) Diagnoses CAD (coronary artery disease) I25.10 Stented coronary artery Z95.5 History of cardiac cath Z98.890 PAF (paroxysmal atrial fibrillation) I48.0 Preop cardiovascular exam Z01.810 Ischemic cardiomyopathy I25.5 CPT Codes EKG - CPT: 40919-[id number], Complete ([id number]) Time Spent (min) 30
== END 2023-07-26 09:38 | disposition home or self-care (01) ==
PROVIDERS: PCP Internal Medicine; Visit Provider Nurse Practitioner Family
DX: I25.10 Atherosclerotic heart disease of native coronary artery without angina pectoris (principal); Z95.5 Presence of coronary angioplasty implant and graft; Z98.890 Other specified postprocedural states; I48.0 Paroxysmal atrial fibrillation; Z01.810 Encounter for preprocedural cardiovascular examination; I25.5 Ischemic cardiomyopathy
CPT/HCPCS: 93010; 99214

== ENCOUNTER → 2023-07-26 08:51 | Outpatient (BNVA) | payer OTHER, SELFPAY | PROVIDERS: PCP Internal Medicine; Visit Provider Nurse Practitioner Family | DX: Z01.810 Encounter for preprocedural cardiovascular examination (principal); I25.10 Atherosclerotic heart disease of native coronary artery without angina pectoris; I48.0 Paroxysmal atrial fibrillation; I25.5 Ischemic cardiomyopathy; I25.2 Old myocardial infarction; Z95.5 Presence of coronary angioplasty implant and graft; Z79.01 Long term (current) use of anticoagulants; Z79.02 Long term (current) use of antithrombotics/antiplatelets; Z79.899 Other long term (current) drug therapy | CPT/HCPCS: 93005 ==

== ENCOUNTER 2024-07-07 08:53 | Outpatient (AMB) | payer BC, SELFPAY ==
--- NOTE | 2024-07-07 08:57 | A.OFFVIS_ITS ---
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[employer] Required: No Allergies No Known Allergies Allergy (Verified 07/07/24 09:00) Medication List - Last Reconciled 07/07/24 by Symone Das NP-C amlodipine 5 mg PO DAILY apixaban (Eliquis) 5 mg PO BID 90 days aspirin 81 mg PO DAILY atorvastatin 80 mg PO DAILY blood pressure monitor As directed carvedilol 12.5 mg PO BID lisinopril 5 mg PO DAILY 90 days pantoprazole 40 mg PO DAILY HPI HPI overdue f/up: Details: Sagar is a 53-year-old male with past medical history of hyperlipidemia, CAD, NSTEMI with PCI to the RCA, ischemic cardiomyopathy last EF 50%, paroxysmal atrial fibrillation, syncope who presents for follow-up. His last prior visit was 07/26/2023. Today he reports that since his last visit he has been diagnosed with severe obstructive sleep apnea. He now has a CPAP mask that he is trying to get used to. He tells me he wears it 4-5 nights per week. When he is able to tolerate it he does feel better in the daytime. 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 He has not had any chest discomfort at rest or with activity. He denies any shortness of breath, PND, orthopnea. He has chronic swelling around his left ankle from a prior injury and surgery. No heart palpitations, lightheadedness, presyncope, syncope. He has good activity tolerance. Compliant with meds. [facility] Medical History High cholesterol Hypertension Surgical History Amputation toe History of cardiac cath Family History Mother Diabetes Father Heart disease Sister Diabetes Brother Lyme disease Social History Alcohol intake: current Alcohol intake frequency: 0-2 drinks per day Alcohol type: beer Patient Tobacco Use Status: Never used Tobacco Review of Systems Const All systems reviewed & are unremarkable except as noted in HPI and below Reports fatigue ENT Denies dizziness Card Denies chest pain, Denies chest pain at rest, Denies chest pain with activity, Denies rapid heart rate, Denies pedal edema, Denies edema, Denies leg edema, Denies lightheadedness, Denies palpitations, Denies dyspnea, Denies dyspnea on exertion and Denies orthopnea Resp Denies cough, Denies dyspnea and Denies dyspnea on exertion GI Denies hematochezia and Denies change in stool character Musc Details: left ankle swelling from prior injury Denies abnormal gait, Denies limited range of motion, Denies muscle cramps, Denies muscle weakness, Denies numbness, Denies radiating pain into limb, Denies stiffness and Denies tingling Neuro Denies abnormal gait, Denies dizziness, Denies numbness and Denies tingling Endo Reports fatigue and Denies palpitations Physical Exam Vital Signs: Last Vital Signs Pulse 72 07/07/24 08:58 BP 124/72 07/07/24 08:58 BMI result Body Mass Index 43.5 Const General: cooperative, healthy appearing, comfortable and no acute distress Orientation/consciousness: patient oriented x3 Neck Neck: Yes normal visual inspection and Yes no JVD Resp Effort & Inspection: normal respiratory effort Auscultation: clear to auscultation bilaterally, no rales, no rhonchi and no wheezes Cardio Rate: regular rate Rhythm: regular rhythm Heart sounds: S1 normal heart sound present, S2 normal heart sound present, no gallops, no murmurs and no rubs Neuro General: patient oriented x3 Extrem General: Yes normal to inspection, No no pedal edema and No calf tenderness Psych Appearance: grossly normal Mental Status: mental status grossly normal Speech and movement: Normal speech and movement present Office Procedures EKG Details: Today, read by me, sinus rhythm with PACs, rate 72b/min [id number], Complete Assessment & Plan Assessment & Plan (1) CAD (coronary artery disease): Code(s): I25.10 - Atherosclerotic heart disease of ambler coronary artery without angina pectoris Category: Medical Plan: History of CAD, NSTEMI, 03/2020 with cardiac catheterization and BITA to the RCA. Initially his echocardiogram showed EF 35-45%, inferior lateral wall akinetic, mid inferior wall hypokinetic. Since that time his EF has improved. Last echo done 02/15/2022 showed EF 53%, no evidence of regional wall motion abnormality. He did undergo a stress test on 02/15/2022 for report of shortness of breath and syncope with good exercise tolerance and no EKG changes of ischemia. EKG done today showing normal sinus rhythm with 1 Pac, rate 72. Will continue med management for stable CAD. Continue aspirin. Continue high-dose atorvastatin with ideal LDL goal less than 70. Continue amlodipine, lisinopril and carvedilol. Continue risk factor modification. Labs followed by PCP, will obtain most recent ones. Signs and symptoms of angina reviewed with him. Cardiology follow-up in 1 year sooner if needed (2) Stented coronary artery: Comment: BITA to the RCA 03/2020 Code(s): Z95.5 - Presence of coronary angioplasty implant and graft Category: Surgical Plan: BITA to the RCA 03/2020 (3) History of cardiac cath: Comment: 03/2020, BITA to the RCA Code(s): Z98.890 - Other specified postprocedural states Category: Surgical Plan: As above (4) PAF (paroxysmal atrial fibrillation): Comment: He is currently asymptomatic. Code(s): I48.0 - Paroxysmal atrial fibrillation Category: Medical Plan: History of paroxysmal atrial fibrillation. Currently suppressed with no known recent episodes.. On carvedilol for rate control. EKG done today showing sinus rhythm, 1 Pac, rate 72. Is on Eliquis for anticoagulation. Recommend biannual renal function tests, CBC. Labs are followed by his PCP. (5) Ischemic cardiomyopathy: Code(s): I25.5 - Ischemic cardiomyopathy Category: Medical Plan: As above. Last EF 53%. He is on lisinopril and carvedilol for neurohormonal modulation. Will update echo prior to his next visit. (6) Sleep apnea: Code(s): G47.30 - Sleep apnea, unspecified Category: Medical Plan: Reports of a new diagnosis of severe obstructive sleep apnea. He now uses CPAP. Explain to him how sleep apnea can affect his heart and the importance of CPAP use. Plan Time spent on chart review, documentation, interview and assessment Orders: Orders CA echo transthoracic complete 11 Months G47.30 - Sleep apnea, unspecified, I25.10 - Atherosclerotic heart disease of ambler coronary artery without angina pectoris, Z95.5 - Presence of coronary angioplasty implant and graft Coding Level of Care Code Est Pt Level 4 (70601) Complex EM visit Add On G2211 Diagnoses CAD (coronary artery disease) I25.10 Stented coronary artery Z95.5 History of cardiac cath Z98.890 PAF (paroxysmal atrial fibrillation) I48.0 Ischemic cardiomyopathy I25.5 Sleep apnea G47.30 CPT Codes EKG - CPT: 54523-[id number], Complete ([id number]) Time Spent (min) 32
[2024-07-07 08:58] VITALS: BP 124/72; PULSE 72; BMI 43.5
== END 2024-07-07 09:29 | disposition home or self-care (01) ==
LOC: HO.HCS 08:54
PROVIDERS: PCP Internal Medicine; Visit Provider Nurse Practitioner Family
DX: I25.10 Atherosclerotic heart disease of native coronary artery without angina pectoris (principal); Z95.5 Presence of coronary angioplasty implant and graft; Z98.890 Other specified postprocedural states; I48.0 Paroxysmal atrial fibrillation; I25.5 Ischemic cardiomyopathy; G47.30 Sleep apnea, unspecified
CPT/HCPCS: 93010; 99214

== ENCOUNTER → 2024-07-07 08:53 | Outpatient (BNVA) | payer BC, SELFPAY | PROVIDERS: PCP Internal Medicine; Visit Provider Nurse Practitioner Family | DX: I48.0 Paroxysmal atrial fibrillation (principal); I25.10 Atherosclerotic heart disease of native coronary artery without angina pectoris; I25.5 Ischemic cardiomyopathy; G47.30 Sleep apnea, unspecified; Z99.89 Dependence on other enabling machines and devices; Z95.5 Presence of coronary angioplasty implant and graft; Z98.890 Other specified postprocedural states | CPT/HCPCS: 93005 ==